=== PATIENT | male | born 1965 | race Caucasian/White ===

== ENCOUNTER 2015-12-30 09:28 | Outpatient (RCR) | payer BC ==
[~2015-12-30 09:28] MED LIST: CEPHALEXIN500 M1 PO; LEVO T PO; LIPITOR; NORCO 325 MG-51 TAB PO; PERCOCET 500 MG1 TAB PO; PREVACID 30MG30 M1 PO; ROBAXIN500 MG PO; TYLENOL 500MG500 MG PO; [UNRECOGNIZED DRUG - OTHER]
== END 2016-03-29 | disposition still patient (30) ==
LOC: MKS.ESL.PT
DX: G57.02 Lesion of sciatic nerve, left lower limb (principal)

== ENCOUNTER → 2018-04-06 | Outpatient (CLI) | payer BC | LOC: SUN.DIA 03-21 13:54 | DX: E11.9 Type 2 diabetes mellitus without complications (principal); E78.5 Hyperlipidemia, unspecified; E03.9 Hypothyroidism, unspecified; I10 Essential (primary) hypertension; E66.9 Obesity, unspecified | CPT/HCPCS: G0108 ==

== ENCOUNTER → 2018-04-18 | Outpatient (CLI) | payer BC | LOC: SUN.DIA 10:12 | DX: E11.9 Type 2 diabetes mellitus without complications (principal); E78.5 Hyperlipidemia, unspecified; I10 Essential (primary) hypertension; E03.9 Hypothyroidism, unspecified; E66.9 Obesity, unspecified | CPT/HCPCS: G0108 ==

== ENCOUNTER → 2021-10-07 | Outpatient (CLI) | payer BC | LOC: COL.RAD 11:11 | DX: K43.9 Ventral hernia without obstruction or gangrene (principal) ==

== ENCOUNTER 2021-12-23 11:12 | Emergency (ER) | payer SELFPAY ==
[~2021-12-23] VITALS: Ht 185.4 cm; Wt 140.9 kg
[2021-12-23 13:40] VITALS: BP 166/44; PULSE 66
== END 2021-12-23 13:40 | disposition home or self-care (01) ==
LOC: COL.ER 11:12
DX: S93.402A Sprain of unspecified ligament of left ankle, initial encounter (principal); Z87.891 Personal history of nicotine dependence; Z88.5 Allergy status to narcotic agent; W10.9XXA Fall (on) (from) unspecified stairs and steps, initial encounter